=== PATIENT | female | born 1995 | race Hispanic/Latino ===

== ENCOUNTER 2017-10-11 05:29 | Inpatient (IN) | payer BC, MEDICAID ==
[~2017-10-11] VITALS: Ht 157.5 cm; Wt 89.8 kg
[~2017-10-11 05:29] MED LIST: MO6B PO
[2017-10-11] MEDS ORDERED: LACTATED RINGERS 1000ML 1,000 ML IV PRN (06:22)
[2017-10-11] MEDS ORDERED: AMPICILLIN 2GM+NS 100ML 100 ML IV ONE (06:26)
[2017-10-11] MEDS ORDERED: LACTATED RINGERS 1000ML 1,000 ML IV ONE (06:28)
[2017-10-11] MEDS ORDERED: AMPICILLIN 2GM+NS 100ML 100 ML IV SCH (06:30)
[2017-10-11] MEDS ORDERED: AMPICILLIN 1GM+NS 50ML 50 ML IV SCH (06:30)
[2017-10-11 06:31] VITALS: BP 111/68
[2017-10-11] MEDS ORDERED: PREN1TAB89 PO (06:33)
[2017-10-11 06:44] LABS: HEMATOCRIT 38.5 % (36-48); MEAN CORPUSCULAR HEMOGLOBIN 31.8 pg (27.0-33.0); MEAN CORPUSCULAR HGB CONC 34.6 g/dL (32.0-36.0); MEAN CORPUSCULAR VOLUME 91.9 fL (79-99); PLATELET COUNT (AUTO) 306 K/uL (130-400); RED BLOOD CELL COUNT(AUTO) 4.18 MIL/uL (4.00-5.50); WHITE BLOOD COUNT (AUTO) 11.6 K/uL (4.8-10.8)
[2017-10-11] MEDS ORDERED: BUTORPHANOL TARTRATE 2 MG/ML IVP SCH (06:45)
[2017-10-11 06:57] LABS: APPEARANCE,URINE Clear (CLEAR); BILIRUBIN,URINE Negative (NEGATIVE); COLOR,URINE Yellow (YELLOW); GLUCOSE, URINE (UA) Negative (NEGATIVE); KETONES,URINE Negative (NEGATIVE); LEUKOCYTE ESTERASE ,URINE Large (NEGATIVE); NITRATE,URINE Negative (NEGATIVE); OCCULT BLOOD,URINE Small (NEGATIVE); PROTEIN,URINE Negative (NEGATIVE); UROBILINOGEN,URINE 0.2 mg/dL (0.2-1.0)
[2017-10-11 06:59] LABS: BACTERIA,URINE Rare /HPF (None Seen); SQUAMOUS EPITHELIAL CELL,UR Rare /LPF (0-2)
[2017-10-11] MEDS ORDERED: OXYTOCIN 10 USP UNITS/ML ONE ×2 (07:56→09:36)
[2017-10-11 08:10] LABS: RAPID PLASMA REAGIN NONREACTIVE (NONREACTIVE)
[2017-10-11] MEDS ORDERED: WITCH HAZEL 1 PAD TP PRN (09:00)
[2017-10-11] MEDS ORDERED: DIPH,PERTUSS(ACELL),TET VAC/PF 0.5 ML VIAL IM PRN (09:00)
[2017-10-11] MEDS ORDERED: IBUPROFEN 800 MG TAB PO PRN (09:00)
[2017-10-11] MEDS ORDERED: LANOLIN 30GM OINTMENT TP PRN (09:00)
[2017-10-11] MEDS ORDERED: MEASLES/MUMPS/RUBELLA VACCINE, LIVE 0.5 ML/VIAL SQ PRN (09:00)
[2017-10-11] MEDS ORDERED: ACETAMINOPHEN 325 MG TAB PO PRN (09:00)
[2017-10-11] MEDS ORDERED: BENZOCAINE/LANOLIN/ALOE VERA 60 ML AEROSOL TP PRN (09:00)
[2017-10-11 10:40] VITALS: BP 117/63
[2017-10-11 11:21] VITALS: BP_SYST 102; BP_SYST 123; BP_DIAS 63; BP_DIAS 66
[2017-10-11 15:25] VITALS: BP 112/63
[2017-10-11 19:37] VITALS: BP 107/61
[2017-10-11] MEDS: DOCUSATE SODIUM 100 MG CAP PO SCH (21:56)
[2017-10-11 23:33] VITALS: BP 99/59
[2017-10-12 03:14] VITALS: BP 93/50
[2017-10-12 06:56] LABS: HEMATOCRIT 35.4 % (36-48); MEAN CORPUSCULAR HEMOGLOBIN 31.7 pg (27.0-33.0); MEAN CORPUSCULAR HGB CONC 34.2 g/dL (32.0-36.0); MEAN CORPUSCULAR VOLUME 92.8 fL (79-99); PLATELET COUNT (AUTO) 246 K/uL (130-400); RED BLOOD CELL COUNT(AUTO) 3.82 MIL/uL (4.00-5.50); RED CELL DISTRIBUTION WIDTH 15.2 % (11.0-15.5); WHITE BLOOD COUNT (AUTO) 12.5 K/uL (4.8-10.8)
[2017-10-12 07:29] LABS: HEPATITIS Bs ANTIGEN SCREEN P Negative (Negative)
[2017-10-12 07:35] VITALS: BP 123/52
[2017-10-12] MEDS: DOCUSATE SODIUM 100 MG CAP PO SCH (08:43)
[2017-10-12] MEDS ORDERED: MEASLES/MUMPS/RUBELLA VACCINE, LIVE 0.5 ML/VIAL SQ SCH (09:15)
[2017-10-12 11:20] VITALS: BP 106/52
== END 2017-10-12 14:00 | disposition home or self-care (01) | DRG 775 ==
LOC: EDH 05:29 → LDH 05:30 → OBSVTOIN 05:30 → WSH 10:40
PROVIDERS: ADMIT Obstetrics & Gynecology; ATTEND Obstetrics & Gynecology
PROC: 10E0XZZ Delivery of Products of Conception, External Approach (ICD-10-PCS; principal; 2017-10-11)
PROC: 10907ZC Drainage of Amniotic Fluid, Therapeutic from Products of Conception, Via Natural or Artificial Opening (ICD-10-PCS; 2017-10-11)
PROC: 3E0234Z Introduction of Serum, Toxoid and Vaccine into Muscle, Percutaneous Approach (ICD-10-PCS; 2017-10-11)
PROC: 3E0134Z Introduction of Serum, Toxoid and Vaccine into Subcutaneous Tissue, Percutaneous Approach (ICD-10-PCS; 2017-10-11)
DX: O80 Encounter for full-term uncomplicated delivery (principal); Z23 Encounter for immunization; Z37.0 Single live birth; Z3A.39 39 weeks gestation of pregnancy
CPT/HCPCS: 36415; 81001; 85027; 86592; 86701; 86850; 86900; 86901; 87340; 87390; 90707; 90715; 99291; A4351; J0290; J0595; J2590; J7120